=== PATIENT | male | born 1960 | race Caucasian/White ===

== ENCOUNTER → 2019-10-15 | Outpatient (CLI) | payer OTHER ==
--- NOTE | 2019-10-16 23:48 | MR ---
EXAMINATION TYPE: MR shoulder RT wo con DATE OF EXAM: 10/15/2019 COMPARISON: None HISTORY: R shoulder pain Multiplanar multiecho imaging of the right shoulder was performed with no contrast. There is mild shoulder joint effusion. Subscapularis tendon is intact. There is some thickening and i ncreased signal in the supraspinatus tendon over the greater tuberosity of the humerus and over the t op of the humeral head. There is no retraction. There is full-thickness defect at the greater tuberos ity and in the subacromial joint space. There is moderate spurring at the AC joint. There is no signi ficant subacromial impingement. The glenoid maximo appear intact. Biceps tendon is not seen in the bic ipital groove. IMPRESSION: Large rotator cuff tear with multiple full-thickness defects in the supraspinatus tendon. No retracti on. Moderate spurring at the AC joint with fluid. There is evidence of at least partial tear of the biceps tendon. Moderate joint effusion.
== END | disposition home or self-care (01) ==
LOC: RADMRIMAIN 06:42
PROVIDERS: ATTEND Orthopaedic Surgery
DX: M75.121 Complete rotator cuff tear or rupture of right shoulder, not specified as traumatic (principal); S46.211A Strain of muscle, fascia and tendon of other parts of biceps, right arm, initial encounter

== ENCOUNTER → 2019-11-09 | Outpatient (CLI) | payer OTHER ==
[2019-11-09 07:19] LABS: Basophils % (A) 1 %; Eosinophils # (A) 0.1 k/uL (0-0.7); Eosinophils % (A) 2 %; HCT 48.2 % (39.0-53.0); HGB 15.5 gm/dL (13.0-17.5); Lymphocytes # (A) 1.8 k/uL (1.0-4.8); Lymphocytes % (A) 31 %; MCH 30.9 pg (25.0-35.0); MCHC 32.1 g/dL (31.0-37.0); MCV 96.2 fL (80.0-100.0); Mean Platelet Volume 11.1; Monocytes # (A) 0.6 k/uL (0-1.0); Monocytes % (A) 10 %; Neutrophils # (A) 3.2 k/uL (1.3-7.7); Neutrophils % (A) 53 %; Platelet Count 132 k/uL (150-450); RBC 5.01 m/uL (4.30-5.90); RDW 12.4 % (11.5-15.5)
[2019-11-09 07:22] LABS: Potassium 4.3 mmol/L (3.5-5.1)
== END | disposition home or self-care (01) ==
LOC: LABPAT 06:34
PROVIDERS: ATTEND Orthopaedic Surgery
DX: Z01.818 Encounter for other preprocedural examination (principal); Z01.812 Encounter for preprocedural laboratory examination; M75.41 Impingement syndrome of right shoulder
CPT/HCPCS: 36415; 80051; 85025; 93005

== ENCOUNTER 2019-11-18 05:43 | Day surgery (SDC) | payer OTHER ==
[2019-11-16 17:33] VITALS: BMI 31.4
--- NOTE | 2019-11-17 16:59 | HP ---
HISTORY AND PHYSICAL DATE OF SURGERY: 11/18/2019. Carlos Enrique Diaz is a 59-year-old patient seen with progressive right shoulder pain. We discussed options for treatment. He elected to proceed with arthroscopy. Consent regarding the procedure was obtained. PAST MEDICAL HISTORY: Hypertension, hypothyroidism, kkt-[id number] diabetes. PAST SURGICAL HISTORY: Noncontributory. DAILY MEDICATIONS: Amlodipine, metformin, Zocor. ALLERGIES: NONE. SOCIAL HISTORY: He denies current tobacco use. PHYSICAL EVALUATION OF RIGHT SHOULDER: Flexion 160, abduction 160. External rotation is 50 with weakness. Tenderness along the anterolateral acromion and rotator cuff insertion site. Impingement sign is positive at 100. Drop-arm sign is positive. Distal neurovascular exam is intact. RADIOGRAPHS: Radiographs of the right shoulder revealed a type 2 anterior acromion, acromioclavicular joint osteoarthritis and cystic changes of the greater tuberosity. An MRI of the right shoulder revealed a large rotator cuff tear along with a biceps tendon tear and acromioclavicular joint osteoarthritis. IMPRESSION: 1. Right shoulder impingement with rotator cuff tear. 2. Right shoulder acromioclavicular joint osteoarthritis. 3. Hypertension. 4. Isc-jbtfwdi-mkkddgujw diabetes. PLAN: Right shoulder arthroscopy with subacromial decompression, arthroscopic rotator cuff repair, Vlad, and debridement. MMODL / IJN: [id number] /
[2019-11-18] MEDS ORDERED: SCOPOLAMINE 1.5MG/72HR PATCH TRANSDERM ONE (05:44)
[2019-11-18] MEDS ORDERED: LACTATED RINGERS 1,000 ML IV SCH (05:44)
[2019-11-18] MEDS ORDERED: DEXAMETHASONE SOD PHOSPHATE 10 MG/ML 1 ML VIAL IV ONE (05:44)
[2019-11-18] MEDS ORDERED: LIDOCAINE 1% 20 ML VIAL (10MG/ML) FOR IV START INTRADERMA PRN (05:44)
[2019-11-18] MEDS ORDERED: ONDANSETRON 4 MG/2 ML VIAL IVP ONE (05:44)
[2019-11-18] MEDS ORDERED: HYDROmorphone 0.5 MG/0.5 ML SYRINGE IVP PRN (05:44)
[2019-11-18 06:27] LABS: Glucose,Whole Blood 167 mg/dL (75-99)
[2019-11-18] MEDS ORDERED: MIDAZOLAM 2 MG/2 ML VIAL IVP ONE (06:52)
[2019-11-18] MEDS ORDERED: fentaNYL (PF) 50 MCG/ML 2 ML AMP IVP ONE (06:54)
[2019-11-18] MEDS ORDERED: fentaNYL (PF) 50 MCG/ML 2 ML AMP ONE (07:25)
[2019-11-18] MEDS ORDERED: MIDAZOLAM 2 MG/2 ML VIAL ONE (07:25)
[2019-11-18] MEDS ORDERED: LIDOCAINE 1% INJ 10MG/ML (20 ML MDV) ONE (07:25)
[2019-11-18] MEDS ORDERED: GLYCOPYRROLATE 0.2 MG/ML 2 ML VIAL ONE (07:25)
[2019-11-18] MEDS ORDERED: PHENYLEPHRINE-0.9% NACL SYG 1 MG/10 ML SYRINGE ONE (07:25)
[2019-11-18] MEDS ORDERED: ROCURONIUM BROMIDE 10 MG/ML 10 ML VIAL IV ONE (07:25)
[2019-11-18] MEDS ORDERED: ROPIVACAINE 5 MG/ML 30 ML VIAL ONE (07:25)
[2019-11-18] MEDS ORDERED: PROPOFOL 10 MG/ML 20 ML VIAL IV ONE (07:25)
[2019-11-18] MEDS ORDERED: NEOSTIGMINE 1 MG/ML 10 ML VIAL ONE (07:25)
--- NOTE | 2019-11-18 07:59 | P.ANPRN ---
Procedure Note - Anesthesia - Nerve Block Performed Right Interscalene Single Time Out Performed: Yes Date of Procedure: 11/18/19 Procedure Start Time: 06:55 Procedure Stop Time: 07:01 Location of Patient: PreOp Indication: Acute Post-Operative Pain Specifically requested for management of pain by DrAdria: Mart Jones Sedation Type: Sedate with meaningful contact maintained Preparation: Sterile Prep Position: Supine Catheter: None Needle Types: Pajunk Needle Gauge: 20 Ultrasound used to visualize needle placement: Yes Ultrasound used to observe medication spread: Yes Injectate: 0.5% Ropivacaine (see comment for volume) (20 cc) Blood Aspirated: No Pain Paresthesia on Injection Noted: No Resistance on Injection: Normal Image Stored and Saved: Yes Events: Uneventful and Well Tolerated
[2019-11-18] MEDS ORDERED: LACTATED RINGERS 1,000 ML IV ONE (08:32)
--- NOTE | 2019-11-18 09:14 | P.OP ---
Date of Procedure: 11/18/19 Preoperative Diagnosis: Right shoulder impingement Postoperative Diagnosis: 1. Right shoulder rotator cuff tear 2. Right shoulder impingement 3. Right shoulder acromioclavicular joint Procedure(s) Performed: 1. Right shoulder arthroscopic rotator cuff repair 2. Right shoulder arthroscopic subacromial decompression 3. Right shoulder arthroscopic Vlad procedure Implants: 44.75 Arthrex swivel lock anchors Anesthesia: GETA, regional (Interscalene block) Surgeon: Mart Jones Stock Manager #1: Hai Ortega Estimated Blood Loss (ml): 8 Pathology: none sent Condition: stable Disposition: PACU Indications for Procedure: 59-year-old patient seen with progressive right shoulder pain. After having treatment options discussed, he elected to proceed with arthroscopy. Operative Findings: See description of procedure Description of Procedure: Patient underwent an interscalene block by department of anesthesia. The patient was then taken to the operative suite. The patient underwent a general anesthetic by the department of anesthesia. The patient was placed into a lateral position and secured. There was appropriate padding of the bony prominence. Right shoulder was then prepped and draped in normal sterile orthopedic fashion. We placed the extremity in 10 pounds of longitudinal traction. A posterior incision was now made for a posterior working portal site. The trocar and cannula were inserted into the glenohumeral joint. Arthroscopy was initiated. Spinal needle was now inserted anteriorly, to ascertain the anterior working portal site. An incision was now made in that area, a trocar was inserted followed by a probe. There was absence of the long head biceps tendon with some residual torn stump. There were grade 1 chondromalacia changes of the glenohumeral joint. There was some mild superficial tearing of the superior labrum. I debrided that superficial tearing with a motorized shaver as well as debriding out the residual long head stump. The residual labrum was found to be stable. Instruments were now removed from glenohumeral joint. Utilizing the posterior working portal site, the trocar and cannula were inserted into the subacromial space. Arthroscopy initiated. I made an incision 2 fingerbreadths lateral to the acromion. I introduced my trocar followed by my ArthroCare ablator. I now began ablating thick subacromial bursal tissue, which exposed the undersurface of the anterior acromion. There was diminished subacromial space. There was a very prominent anterior acromion. A motorized bur was introduced and a subacromial decompression was performed. I also excised some osteophytes off the inferior aspect of the distal clavicle. The AC joint was visualized and noted to be fairly arthritic. The motorized bur was introduced in the anterior portal site and a Vlad procedure was performed without difficulty, decompressing the AC joint nicely. I turned my attention to the rotator cuff. There was a 2.5 cm rotator cuff tear. I debrided the margins getting down to stable tendon tissue. I introduced my motorized bur and abraded the footprint area, getting some petechial bleeding. I now made an accessory portal site off the lateral aspect of the acromion. I punched [] holes medial for medial row fixation with the assistance of Alvaro DALEY carefully tapping the punch with a mallet as I held the punch and the camera. I now introduced both anchors into the pre-punched holes and Alvaro DALEY tapped them with the mallet as I held anchors and the camera. Alvaro DALEY now screwed the anchors in place a while I held the anchor guide and camera. All 8 limbs of suture were now passed through good bites of rotator cuff tendon. I now punched 2 holes for lateral row fixation again I held the punch and camera while Alvaro DALEY used a mallet to tap in the punch. We now passed sutures through both anchors and individually I introduced the anchors into the pre-punch holes I held the anchor guide in position with one hand holding the camera with the other hand while Alvaor DALEY tensioned the sutures and screwed in the anchors one at a time. All residual suture limbs were now clipped. We had good compression of the tendon along the entire footprint. I injected 1 mL Renyte intra-articular. Instruments now removed from the portal sites. All portal sites were approximated with nylon suture. Sterile dressings were applied followed by a shoulder immobilizer. Hai DALEY assisted in this complex case. The patient was awakened, transferred to a bed, and taken to recovery in stable condition.
[2019-11-18 09:23] VITALS: TEMP 97.3
[2019-11-18 09:59] VITALS: RESP 18
[2019-11-18 10:25] VITALS: BP 153/98; PULSE 68
== END 2019-11-18 10:55 | disposition home or self-care (01) ==
LOC: OR 05:43
PROVIDERS: ATTEND Orthopaedic Surgery
DX: M75.101 Unspecified rotator cuff tear or rupture of right shoulder, not specified as traumatic (principal); M25.811 Other specified joint disorders, right shoulder; S46.111A Strain of muscle, fascia and tendon of long head of biceps, right arm, initial encounter; M94.211 Chondromalacia, right shoulder; S43.431A Superior glenoid labrum lesion of right shoulder, initial encounter; M19.011 Primary osteoarthritis, right shoulder; E11.9 Type 2 diabetes mellitus without complications; I10 Essential (primary) hypertension; E03.9 Hypothyroidism, unspecified; E78.5 Hyperlipidemia, unspecified; Z79.899 Other long term (current) drug therapy; Z79.84 Long term (current) use of oral hypoglycemic drugs; Z86.79 Personal history of other diseases of the circulatory system; Z79.82 Long term (current) use of aspirin; X58.XXXA Exposure to other specified factors, initial encounter
CPT/HCPCS: 64415; 29827; 29826; 29824; 76942; C1713 ×2; Q4212; J2250; J1100; J2710; J0690; J2405; J2001; J3010; J2795; J2370; J2704

== ENCOUNTER 2022-12-28 19:23 | Observation (INO) | payer OTHER ==
[2022-12-28 19:30] LABS: Glucose,Whole Blood 143 mg/dL (70-110)
[2022-12-28] MEDS ORDERED: KETOROLAC 15 MG/ML 1 ML VIAL IVP STA (19:46)
[2022-12-28] MEDS ORDERED: ORPHENADRINE 30 MG/ML 2 ML VIAL IM STA (19:46)
--- NOTE | 2022-12-28 19:51 | ED ---
Back Pain HPI - General Chief Complaint: Back Pain/Injury Stated Complaint: Altered Mental, Back Pain Time Seen by Provider: 12/28/22 19:27 Source: patient Limitations: no limitations - History of Present Illness MD Complaint: back pain -: month(s) Similar Symptoms Previously: Yes Place: home Radiation: left leg Severity: severe Quality: aching Consistency: constant Improves With: none Worsens With: movement Associated Symptoms: denies other symptoms - Related Data Home Medications Medication Instructions Recorded Confirmed Dulaglutide [Trulicity] 1.5 mg SQ FR 12/28/22 12/28/22 Simvastatin [Zocor] 20 mg PO HS 12/28/22 12/28/22 amLODIPine BESYLATE/BENAZEPRIL 1 cap PO DAILY 12/28/22 12/28/22 [amLODIPine BESYLATE/BENAZEPRIL 5-40 mg] hydroCHLOROthiazide [Hydrodiuril] 25 mg PO DAILY 12/28/22 12/28/22 metFORMIN HCL [Glucophage] 500 mg PO BID 12/28/22 12/28/22 Allergies Allergy/AdvReac Type Severity Reaction Status Date / Time No Known Allergies Allergy Verified 12/28/22 20:29 Review of Systems ROS Statement: Those systems with pertinent positive or pertinent negative responses have been documented in the HPI. ROS Other: All systems not noted in ROS Statement are negative. Constitutional: Denies: fever, chills, weakness Respiratory: Denies: cough, dyspnea Cardiovascular: Denies: chest pain, palpitations Gastrointestinal: Denies: abdominal pain, vomiting, diarrhea, constipation Genitourinary: Denies: dysuria, hematuria, testicular pain Musculoskeletal: Reports: back pain Skin: Denies: rash Neurological: Denies: headache, weakness, numbness Past Medical History Past Medical History: Diabetes Mellitus, Hypertension History of Any Multi-Drug Resistant Organisms: None Reported Past Surgical History: No Surgical Hx Reported Past Psychological History: No Psychological Hx Reported Smoking Status: Never smoker Past Alcohol Use History: None Reported Past Drug Use History: None Reported General Exam Limitations: no limitations General appearance: alert, in no apparent distress Head exam: Present: atraumatic, normocephalic Neck exam: Present: normal inspection, full ROM. Absent: tenderness Respiratory exam: Present: normal lung sounds bilaterally. Absent: respiratory distress, wheezes, rales, rhonchi, stridor Cardiovascular Exam: Present: regular rate, normal rhythm, normal heart sounds. Absent: systolic murmur, diastolic murmur, rubs, gallop GI/Abdominal exam: Present: soft. Absent: distended, tenderness, guarding, rebound, rigid, mass, pulsatile mass Extremities exam: Present: normal inspection, normal capillary refill. Absent: pedal edema, calf tenderness Neurological exam: Present: alert, reflexes normal. Absent: motor sensory deficit Skin exam: Present: warm, dry, intact, normal color. Absent: rash Course Vital Signs 12/28/22 19:26 Temperature 97.9 F Pulse Rate 91 Respiratory 16 Rate Blood Pressure 155/91 O2 Sat by Pulse 97 Oximetry Medical Decision Making - Lab Data Lab Results 12/28/22 Range/Units 19:27 POC Glucose (mg/dL) 143 H (70-110) mg/dL POC Glu Draw Machine Operator ID Winnie Vasqueza Disposition Clinical Impression: Low back pain Disposition: HOME SELF-CARE Condition: Good Instructions (If sedation given, give patient instructions): Acute Low Back Pain (ED) Is patient prescribed a controlled substance at d/c from ED?: No Referrals: Ann Marie Jewell DO [Primary Care Provider] - 1-2 days
--- NOTE | 2022-12-28 20:20 | CT ---
EXAMINATION TYPE: CT lumbar spine wo con DATE OF EXAM: 12/28/2022 COMPARISON: None HISTORY: low back pain CT DLP: 1490.2 mGycm Automated exposure control for dose reduction was used. Images obtained T12-S2 vertebra with no contrast. The lumbar vertebrae have normal alignment. Disc spaces are fairly normal. There is spurring anterior ly throughout the lumbar spine. No compression fracture. The posterior elements are intact. There is mild hypertrophic lumbar facet arthropathy. There is no lumbar paraspinal mass. Sacroiliac joints are intact. No focal bone destruction. IMPRESSION: There is hypertrophic degenerative disc changes in the lumbar spine. No fracture. There is partial visualization of the liver which shows apparent enlargement with fatty infiltration. There are multiple large bowel diverticula.
[2022-12-28] MEDS ORDERED: MORPHINE SULFATE 4 MG/ML SYRINGE IV STA (20:39)
[2022-12-28 21:29] LABS: ALT 62 U/L (4-49); AST 272 U/L (17-59); African American GFR (CKD) >90 (>60 ml/min/1.73 sqM); Albumin 4.6 g/dL (3.5-5.0); Alkaline Phosphatase 260 U/L (38-126); Anion Gap 22 mmol/L; Blood Urea Nitrogen 7 mg/dL (9-20); Calcium 8.9 mg/dL (8.4-10.2); Carbon Dioxide 25 mmol/L (22-30); Chloride 92 mmol/L (98-107); Glucose 150 mg/dL (74-99); Non-African American GFR(CKD) >90 (>60 ml/min/1.73 sqM); Potassium 3.7 mmol/L (3.5-5.1); Sodium 139 mmol/L (137-145); Total Bilirubin 1.5 mg/dL (0.2-1.3); Total Protein 8.1 g/dL (6.3-8.2)
[2022-12-28] MEDS ORDERED: NALOXONE 0.4 MG/ML 1 ML VIAL IV PRN (21:54)
[2022-12-28 21:55] LABS: Basophils % (A) 1 %; Eosinophils % (A) 0 %; HCT 41.9 % (39.0-53.0); HGB 14.4 gm/dL (13.0-17.5); Lymphocytes # (A) 1.5 k/uL (1.0-4.8); Lymphocytes % (A) 20 %; MCHC 34.5 g/dL (31.0-37.0); MCV 98.7 fL (80.0-100.0); Mean Platelet Volume 10.5; Monocytes # (A) 0.5 k/uL (0-1.0); Monocytes % (A) 6 %; Neutrophils # (A) 5.5 k/uL (1.3-7.7); Neutrophils % (A) 71 %; Platelet Count 114 k/uL (150-450); RBC 4.24 m/uL (4.30-5.90); RDW 14.1 % (11.5-15.5); WBC 7.8 k/uL (3.8-10.6)
[2022-12-28] MEDS ORDERED: LORazepam 2 MG/ML INJ IV PRN ×3 (22:02)
[2022-12-28] MEDS ORDERED: chlordiazePOXIDE 25 MG CAP PO PRN (22:02)
[2022-12-28 22:03] LABS: Alcohol 348 mg/dL
[2022-12-28] MEDS: SODIUM CHLORIDE 0.9% 1,000 ML IV SCH (22:54)
[2022-12-28 23:43] LABS: Glucose,Whole Blood 125 mg/dL (70-110)
[2022-12-29] MEDS ORDERED: DEXTROSE 50% SYRINGE 50 ML IVP PRN ×2 (00:10)
[2022-12-29] MEDS ORDERED: traMADol 50 MG TAB PO STA (00:11)
[2022-12-29] MEDS: lisinopriL 20 MG TAB PO SCH ×2 (00:37→08:43)
[2022-12-29] MEDS: amLODIPine 5 MG TAB PO SCH ×2 (00:37→08:43)
[2022-12-29 05:56] LABS: Glucose,Whole Blood 135 mg/dL (70-110)
[2022-12-29] MEDS: INSULIN ASPART (NovoLOG) 100 UNIT/ML VIAL SQ SCH ×4 (06:15→21:54)
[2022-12-29] MEDS: metFORMIN 500 MG TAB PO SCH ×2 (08:43→21:53)
[2022-12-29] MEDS: HEPARIN SODIUM,PORCINE/PF 5,000 UNIT/0.5 ML SYRINGE SQ SCH ×2 (08:43→17:25)
[2022-12-29] MEDS: THIAMINE 100 MG TAB PO SCH (08:43)
[2022-12-29 09:40] LABS: Basophils # (A) 0.07 X 10*3/uL (0.00-0.10); Basophils % (A) 0.8 %; Eosinophils # (A) 0.01 X 10*3/uL (0.04-0.35); Eosinophils % (A) 0.1 %; HCT 37.2 % (39.6-50.0); HGB 12.5 g/dL (13.0-17.0); Immature Grans, Automated 0.3 %; Lymphocytes # (A) 1.16 X 10*3/uL (0.90-5.00); Lymphocytes % (A) 13.2 %; MCH 32.7 pg (27.0-32.0); MCHC 33.6 g/dL (32.0-37.0); MCV 97.4 fL (80.0-97.0); Mean Platelet Volume 12.2 fL (9.5-12.2); Monocytes # (A) 0.99 X 10*3/uL (0.20-1.00); Monocytes % (A) 11.3 %; NRBC Per 100 WBC 0 /100 WBCS (0.0-0.0); Neutrophils # (A) 6.52 X 10*3/uL (1.80-7.70); Neutrophils % (A) 74.3 %; Platelet Count 103 X 10*3/uL (140-440); RBC 3.82 X 10*6/uL (4.40-5.60); RDW 14.8 % (11.5-14.5); WBC 8.78 X 10*3/uL (4.50-10.00)
[2022-12-29 09:47] LABS: African American GFR (CKD) 118.9 (60.0-200.0); Albumin/Globulin Ratio 1.29 (1.60-3.17); Anion Gap 23.5 mmol/L (10.00-18.00); BUN/Creat Ratio 11.86 Ratio (12.00-20.00); Blood Urea Nitrogen 8.3 mg/dL (9.0-27.0); Carbon Dioxide 22.5 mmol/L (20.0-27.5); Globulin 3.1 g/dL (1.6-3.3); Non-African American GFR(CKD) 102.6 (60.0-200.0); Potassium 3.5 mmol/L (3.5-5.5); Total Bilirubin 1.2 mg/dL (0.30-1.20); Total Protein 7.1 g/dL (6.2-8.2)
[2022-12-29] MEDS ORDERED: traMADol 50 MG TAB PO PRN (10:46)
[2022-12-29] MEDS: ONDANSETRON 4 MG/2 ML VIAL IVP PRN ×2 (10:49→18:53)
[2022-12-29] MEDS ORDERED: traMADol 50 MG TAB PO SCH (13:00)
[2022-12-29 13:18] LABS: African American GFR (CKD) >90 (>60 ml/min/1.73 sqM); Anion Gap 20 mmol/L; Blood Urea Nitrogen 9 mg/dL (9-20); Calcium 8.9 mg/dL (8.4-10.2); Carbon Dioxide 21 mmol/L (22-30); Chloride 94 mmol/L (98-107); Glucose 199 mg/dL (74-99); Non-African American GFR(CKD) >90 (>60 ml/min/1.73 sqM); Potassium 3.8 mmol/L (3.5-5.1); Sodium 135 mmol/L (137-145)
[2022-12-29] MEDS: SODIUM CHLORIDE 0.9% 1,000 ML IV SCH ×2 (16:44→21:55)
[2022-12-29 17:02] LABS: Glucose,Whole Blood 196 mg/dL (70-110)
--- NOTE | 2022-12-29 19:32 | P.HPIM ---
History of Present Illness H&P Date: 12/29/22 Chief Complaint: Back pain/altered mental status 62-year-old male patient with history of hypertension, diabetes and hyperlipidemia, brought to ED by the family with complaint of worsening lower back pain and also some change in mental status Patient is not able to give much history and not sure why he was brought to ED; denies any chest pain or shortness of breath at this time; he is more awake Blood work completed in ED revealed a WBC of 8.7, hemoglobin of 12.5 and coretta telet count of 103, sodium 138, potassium 3.5, BUN/creatinine of 8.3/0.7, blood glucose is elevated at 199; patient's serum alcohol level was found to be in toxic range at 348 Review of Systems REVIEW OF SYSTEMS: CONSTITUTIONAL: No fever, no malaise, no fatigue. HEENT: No recent visual problems or hearing problems. Denied any sore throat. CARDIOVASCULAR: No chest pain, orthopnea, PND, no palpitations, no syncope. PULMONARY: No shortness of breath, no cough, no hemoptysis. GASTROINTESTINAL: No diarrhea, no nausea, no vomiting, no abdominal pain. NEUROLOGICAL: No headaches, no weakness, no numbness. HEMATOLOGICAL: Denies any bleeding or petechiae. GENITOURINARY: Denies any burning micturition, frequency, or urgency. MUSCULOSKELETAL/RHEUMATOLOGICAL: Back pain. ENDOCRINE: Denies any polyuria or polydipsia. The rest of the 14-point review of systems is negative. Past Medical History Past Medical History: Diabetes Mellitus, Hypertension, Skin Disorder Additional Past Medical History / Comment(s): Psoriasis History of Any Multi-Drug Resistant Organisms: None Reported Past Surgical History: No Surgical Hx Reported Past Anesthesia/Blood Transfusion Reactions: No Reported Reaction Past Psychological History: No Psychological Hx Reported Smoking Status: Never smoker Past Alcohol Use History: None Reported Past Drug Use History: None Reported Medications and Allergies Home Medications Medication Instructions Recorded Confirmed Type Dulaglutide [Trulicity] 1.5 mg SQ FR 12/28/22 12/28/22 History Simvastatin [Zocor] 20 mg PO HS 12/28/22 12/28/22 History amLODIPine BESYLATE/BENAZEPRIL 1 cap PO DAILY 12/28/22 12/28/22 History [amLODIPine BESYLATE/BENAZEPRIL 5-40 mg] hydroCHLOROthiazide [Hydrodiuril] 25 mg PO DAILY 12/28/22 12/28/22 History metFORMIN HCL [Glucophage] 500 mg PO BID 12/28/22 12/28/22 History Allergies Allergy/AdvReac Type Severity Reaction Status Date / Time No Known Allergies Allergy Verified 12/28/22 20:29 Physical Exam Vitals: Vital Signs Temp Pulse Pulse Resp BP BP Pulse Ox 12/29/22 02:20 98.6 F 100 20 133/75 93 L 12/28/22 23:43 98.4 F 96 20 167/74 96 12/28/22 23:00 97 16 154/94 95 12/28/22 21:00 95 16 151/95 95 12/28/22 19:26 97.9 F 91 16 155/91 97 Intake and Output 12/28/22 12/29/22 12/29/22 22:59 06:59 14:59 Intake Total 600 Balance 600 Intake: Oral 600 Other: # Voids 0 Weight 104.326 kg 104.326 kg PHYSICAL EXAMINATION: GENERAL: The patient is alert and oriented x3, not in any acute distress. Well developed, well nourished. HEENT: Pupils are round and equally reacting to light. EOMI. No scleral icterus. No conjunctival pallor. Normocephalic, atraumatic. No pharyngeal erythema. No thyromegaly. CARDIOVASCULAR: S1 and S2 present. No murmurs, rubs, or gallops. PULMONARY: Chest is clear to auscultation, no wheezing or crackles. ABDOMEN: Soft, nontender, nondistended, normoactive bowel sounds. No palpable organomegaly. MUSCULOSKELETAL: No joint swelling or deformity. EXTREMITIES: No cyanosis, clubbing, or pedal edema. NEUROLOGICAL: Gross neurological examination did not reveal any focal deficits. SKIN: No rashes. Results CBC & Chem 7: 12/29/22 04:12 12/29/22 12:46 Labs: Abnormal Lab Results - Last 24 Hours (Table) 12/28/22 12/28/22 12/28/22 Range/Units 19:27 19:35 19:35 RBC 4.24 L (4.30-5.90) m/uL Plt Count 114 L (150-450) k/uL Chloride 92 L (98-107) mmol/L BUN 7 L (9-20) mg/dL Creatinine 0.62 L (0.66-1.25) mg/dL Glucose 150 H (74-99) mg/dL POC Glucose (mg/dL) 143 H (70-110) mg/dL Total Bilirubin 1.5 H (0.2-1.3) mg/dL AST 272 H (17-59) U/L ALT 62 H (4-49) U/L Alkaline Phosphatase 260 H (38-126) U/L Serum Alcohol 348 H* mg/dL 12/28/22 12/29/22 Range/Units 23:41 05:54 RBC (4.30-5.90) m/uL Plt Count (150-450) k/uL Chloride (98-107) mmol/L BUN (9-20) mg/dL Creatinine (0.66-1.25) mg/dL Glucose (74-99) mg/dL POC Glucose (mg/dL) 125 H 135 H (70-110) mg/dL Total Bilirubin (0.2-1.3) mg/dL AST (17-59) U/L ALT (4-49) U/L Alkaline Phosphatase (38-126) U/L Serum Alcohol mg/dL Thrombosis Risk Factor Assmnt - Choose All That Apply Any of the Below Risk Factors Present?: Yes Each Factor Represents 1 point: Age 41-60 years, Obesity (BMI >25) Thrombosis Risk Factor Assessment Total Risk Factor Score: 2 Thrombosis Risk Factor Assessment Level: Low Risk Assessment and Plan Assessment: 1. Alcohol intoxication with impending withdrawal - Patient has blood alcohol level of 348; patient reports daily drinking but is not able to quantify - Patient has been placed on IV fluids at a rate of 135 mL an hour along with thiamine and folic acid - WA protocol with Ativan is in place - Social work consulted 2. Transaminitis; initial blood work reveals elevated AST/ALT of 272/62 with total bilirubin elevated at 1.5; likely related to chronic alcohol use - We will continue to monitor liver enzymes with plans for possible ultrasound of abdomen if continue to trend 3. Hyperglycemia; uncontrolled diabetes mellitus; likely related to excessive alcohol use; patient takes metformin 500 mg twice a day and Trulicity at home; we will monitor Accu-Cheks every CNH is insulin sliding scale 4. Hypertension; continue with home dose of Hydrea Diuril 25 mg daily along with amlodipine/Benzapril 540 milligrams daily 5. Hyperlipidemia; Zocor 20 mg daily at bedtime
[2022-12-29 20:26] LABS: Glucose,Whole Blood 188 mg/dL (70-110)
[2022-12-29] MEDS ORDERED: ATORVASTATIN 10 MG TAB PO SCH (21:00)
[2022-12-30] MEDS: HEPARIN SODIUM,PORCINE/PF 5,000 UNIT/0.5 ML SYRINGE SQ SCH ×2 (00:34→08:18)
[2022-12-30 06:05] LABS: Glucose,Whole Blood 150 mg/dL (70-110)
[2022-12-30] MEDS: INSULIN ASPART (NovoLOG) 100 UNIT/ML VIAL SQ SCH (06:12)
[2022-12-30] MEDS: THIAMINE 100 MG TAB PO SCH (08:18)
[2022-12-30] MEDS: metFORMIN 500 MG TAB PO SCH (08:18)
[2022-12-30 08:48] VITALS: BP 155/90; PULSE 87; RESP 17; TEMP 98.7
[2022-12-30] MEDS ORDERED: amLODIPine 5 MG TAB PO SCH (09:00)
[2022-12-30] MEDS ORDERED: lisinopriL 20 MG TAB PO SCH (09:00)
--- NOTE | 2022-12-30 13:58 | P.DS ---
Providers Date of admission: 12/28/22 21:54 Expected date of discharge: 12/30/22 Attending physician: Jair Jewell MD Primary care physician: Ann Marie Jewell [facility] Hospital Course: Final Diagnoses: Alcohol intoxication with impending DTs Transaminitis, improving DM, Hyperglycemia low back pain, resolved Hospital course: Patient initially admitted with chronic back pain with subsequent serum alcohol level high, 348, hypertensive, mild tremors. Lumbar spine CT reported hypertrophic degenerative disc changes in the lumbar spine, no fracture, partial visualization of the liver, peritoneal enlargement with fatty infiltration, multiple large bowel diverticula. Placed on CIWA protocol, pain management, IV fluid hydration with significant clinical improvement. CIWA score this a.m. is 1, reports his back pain has subsided, ambulating in room without difficulty. Denies pain radiating down into legs. Has not required any pain medication for greater than 24 hours. No tremors. Denies chest pain, palpitations or shortness of breath. Patient will be discharged home today in a stable condition with guarded prognosis. Discussed with patient arranging PT outpatient in clinic with PCP. The impression and plan of care has been dictated as directed. : I performed a history and examination of this patient, discussed the same with the dictator. I agree with the dictator's note ,documented as a scribe. Any additional findings or plans will be noted. Patient Condition at Discharge: Stable Plan - Discharge Summary Discharge Rx Participant: No New Discharge Prescriptions: New Thiamine [Vitamin B-1] 100 mg PO DAILY #0 tab Continue metFORMIN HCL [Glucophage] 500 mg PO BID hydroCHLOROthiazide [Hydrodiuril] 25 mg PO DAILY Dulaglutide [Trulicity] 1.5 mg SQ FR Simvastatin [Zocor] 20 mg PO HS amLODIPine BESYLATE/BENAZEPRIL [amLODIPine BESYLATE/BENAZEPRIL 5-40 mg] 1 cap PO DAILY Discharge Medication List Dulaglutide [Trulicity] 1.5 mg SQ FR 12/28/22 [History] Simvastatin [Zocor] 20 mg PO HS 12/28/22 [History] amLODIPine BESYLATE/BENAZEPRIL [amLODIPine BESYLATE/BENAZEPRIL 5-40 mg] 1 cap PO DAILY 12/28/22 [History] hydroCHLOROthiazide [Hydrodiuril] 25 mg PO DAILY 12/28/22 [History] metFORMIN HCL [Glucophage] 500 mg PO BID 12/28/22 [History] Thiamine [Vitamin B-1] 100 mg PO DAILY #0 tab 12/30/22 [Rx] Follow up Appointment(s)/Referral(s): Ann Marie Jewell DO [Primary Care Provider] - 3 Days Patient Instructions/Handouts: Acute Low Back Pain (ED), Alcohol Withdrawal (DC) Discharge Disposition: HOME SELF-CARE
[2022-12-30 14:55] LABS: African American GFR (CKD) 114.2 (60.0-200.0); Anion Gap 16.4 mmol/L (10.00-18.00); BUN/Creat Ratio 9.27 Ratio (12.00-20.00); Blood Urea Nitrogen 7.2 mg/dL (9.0-27.0); Carbon Dioxide 26.1 mmol/L (20.0-27.5); Non-African American GFR(CKD) 98.5 (60.0-200.0); Potassium 3.3 mmol/L (3.5-5.5)
[2022-12-30 16:57] LABS: Basophils # (A) 0.04 X 10*3/uL (0.00-0.10); Basophils % (A) 0.5 %; Eosinophils # (A) 0.04 X 10*3/uL (0.04-0.35); Eosinophils % (A) 0.5 %; HCT 34.5 % (39.6-50.0); HGB 11.9 g/dL (13.0-17.0); Immature Grans, Automated 0.5 %; Immature Platelet Fraction 20.3 % (1.1-6.1); Lymphocytes % (A) 10.7 %; MCH 33.3 pg (27.0-32.0); MCHC 34.5 g/dL (32.0-37.0); MCV 96.6 fL (80.0-97.0); Mean Platelet Volume 12.6 fL (9.5-12.2); Monocytes # (A) 1.09 X 10*3/uL (0.20-1.00); Monocytes % (A) 14.5 %; NRBC Per 100 WBC 0 /100 WBCS (0.0-0.0); Neutrophils % (A) 73.3 %; Platelet Count 77 X 10*3/uL (140-440); RBC 3.57 X 10*6/uL (4.40-5.60); RDW 14.5 % (11.5-14.5); WBC 7.51 X 10*3/uL (4.50-10.00)
[2023-01-03] MEDS ORDERED: NON FORMULARY DRUG (Dulaglutide [Trulicity] 1.5 MG/0.5 ML Each) SQ SCH (09:00)
== END 2022-12-30 10:30 | disposition home or self-care (01) ==
LOC: EC 19:23 → 4SSUR 21:54
PROVIDERS: ADMIT Family Medicine; ATTEND Family Medicine
DX: M54.50 Low back pain, unspecified (principal); W18.30XA Fall on same level, unspecified, initial encounter; F10.129 Alcohol abuse with intoxication, unspecified; R74.01 Elevation of levels of liver transaminase levels; E11.65 Type 2 diabetes mellitus with hyperglycemia; I10 Essential (primary) hypertension; E78.5 Hyperlipidemia, unspecified; Y90.8 Blood alcohol level of 240 mg/100 ml or more; Z79.84 Long term (current) use of oral hypoglycemic drugs; Z79.85 Long-term (current) use of injectable non-insulin antidiabetic drugs; Z79.899 Other long term (current) drug therapy
CPT/HCPCS: 96372 ×3; 96375 ×2; 96376; 96374; 99285; 36415; 80053 ×2; 80048 ×2; 85025 ×3; 80320; 83036; 72131; G0378 ×3; J2270; J2360; J2405; J1885; J1644 ×2